=== PATIENT | male | born 1930 | race Caucasian/White ===

== ENCOUNTER → 2016-09-26 | Outpatient (CLI) | payer OTHER, MEDICARE ==
[~2016-09-26] MED LIST: ACET-1138 PO; ASPEC325 PO; BRIM0.2S OPB; CLTP PO; CZR50 PO; GLUCTAB7 PO; LATA0.009 OPB; NUTR1CAP PO; OMEG10007 PO; PSYL1CAP4 PO; RXC5 PO; VSC/5 PO
[2016-09-26 09:31] LABS: BLOOD UREA NITROGEN 25 mg/dl (7-18); GLUCOSE 102 mg/dl (70-99)
[2016-09-26 09:32] LABS: BUN/CREATININE RATIO 24.9 (10-20); CARBON DIOXIDE 26 mmol/L (21-32); CHLORIDE 109 mmol/L (98-107); CHOLESTEROL 166 mg/dl (0-200); POTASSIUM 4.5 mmol/L (3.5-5.1); SODIUM 142 mmol/L (136-145); TRIGLYCERIDES 85 mg/dl (0-150); VERY LOW DENSITY LIPOPROT CALC 17 mg/dl
[2016-09-26 09:36] LABS: CHOLESTEROL/HDL RATIO 4.3; HDL CHOLESTEROL 39 mg/dl; LDL CHOLESTEROL CALCULATED 110 mg/dl
[2016-09-26 09:37] LABS: CALCIUM 9.2 mg/dl (8.5-10.1)
== END | disposition home or self-care (01) ==
LOC: C.LABFOXMH 08:46
PROVIDERS: ATTEND Internal Medicine
DX: I10 Essential (primary) hypertension (principal); E78.00 Pure hypercholesterolemia, unspecified

== ENCOUNTER → 2017-02-14 | Outpatient (CLI) | payer OTHER, MEDICARE ==
[2017-02-14 10:15] LABS: BLOOD UREA NITROGEN 25 mg/dl (7-18); BUN/CREATININE RATIO 23.1 (10-20); CALCIUM 8.6 mg/dl (8.5-10.1); CARBON DIOXIDE 29 mmol/L (21-32); CHLORIDE 111 mmol/L (98-107); GLUCOSE 111 mg/dl (70-99); POTASSIUM 4.5 mmol/L (3.5-5.1); SODIUM 143 mmol/L (136-145)
== END | disposition home or self-care (01) ==
LOC: C.LABFOXMH 09:40
PROVIDERS: ATTEND Internal Medicine
DX: I10 Essential (primary) hypertension (principal)

== ENCOUNTER → 2017-06-13 | Outpatient (CLI) | payer OTHER, MEDICARE ==
[2017-06-13 11:02] LABS: ALBUMIN 3.3 gm/dl (3.4-5.0); ALT/SGPT 21 U/L (12-78); BLOOD UREA NITROGEN 25 mg/dl (7-18); CALCIUM 8.9 mg/dl (8.5-10.1); CARBON DIOXIDE 24 mmol/L (21-32); CHOLESTEROL 137 mg/dl (0-200); CREATININE 1.04 mg/dl (0.60-1.40); GLUCOSE 116 mg/dl (70-99); POTASSIUM 4.3 mmol/L (3.5-5.1); SODIUM 140 mmol/L (136-145)
[2017-06-13 11:05] LABS: ALKALINE PHOSPHATASE 50 U/L (45-117); AST/SGOT 11 U/L (15-37); LDL CHOLESTEROL CALCULATED 81 mg/dl
== END | disposition home or self-care (01) ==
LOC: C.LABFOXMH 09:07
PROVIDERS: ATTEND Internal Medicine
DX: I10 Essential (primary) hypertension (principal)

== ENCOUNTER 2017-07-24 13:06 | Emergency (ER) | payer OTHER, MEDICARE ==
[~2017-07-24] VITALS: Ht 177.8 cm; Wt 100.1 kg
[2017-07-24 13:21] VITALS: TEMP 37; Ht 177.8 cm; Wt 100.1 kg
[2017-07-24 13:28] VITALS: O2SAT 92
[2017-07-24] MEDS ORDERED: LATA0.5S OPB (14:08)
[2017-07-24] MEDS ORDERED: PSYL48.511 PO (14:08)
[2017-07-24] MEDS ORDERED: ASPI81TA28 PO (14:08)
[2017-07-24] MEDS ORDERED: GLUC1CAP35 PO (14:08)
[2017-07-24] MEDS ORDERED: NUTR1CAP PO (14:08)
[2017-07-24] MEDS ORDERED: LOSA1TAB PO (14:08)
--- NOTE | 2017-07-24 14:33 | DIAGNOSTIC IMAGING REPORT ---
CT HEAD WITHOUT CONTRAST (CT) CLINICAL HISTORY: Head trauma. Weakness. Patient on aspirin. COMPARISON STUDY: No previous studies for comparison. TECHNIQUE: Axial CT of the brain is performed from the vertex to the skull base. IV contrast was not administered for this examination. A dose lowering technique was utilized adhering to the principles of ALARA. CT DOSE: 679.75 mGycm FINDINGS: No intra or extra-axial mass lesions are visualized. There is no CT evidence of acute cortical infarction. There is no evidence of midline shift. There is no acute hemorrhage. No calvarial fractures are visualized. There are minor white matter hypodensities likely on a small vessel basis. There is no evidence of pathologic ventricular dilatation. There is moderate generalized atrophy. There is no evidence of acute sinusitis IMPRESSION: No acute intracranial findings Electronically signed by: Tripp Vicente M.D. 07/24/2017 2:32 PM Dictated Date/Time: 07/24/2017 2:31 PM
--- NOTE | 2017-07-24 15:18 | EMERGENCY ROOM VISIT NOTE ---
History Report prepared by Stephanie: Moshe Muhammad Under the Supervision of: Dr. Jace Busch M.D. First contact with patient: 13:55 Chief Complaint: FALL Stated Complaint: FALL History of Present Illness The patient is a 86 year old white male with a past medical history of herpes zoster, HTN, left knee replacement, Lumbosacral Spondylosis and previous prostate cancer who presents to the ED s/p fall occurring three hours ago. Patient is a resident at [facility]. He did not hit his head or lose consciousness. He did not injure himself on the fall. Patient states "my legs just got tangled up". He states that he was using his walker, and fell towards the right. Negative altered mental status, headaches, chest pain, SOB. He is on aspirin, but no other blood thinning medication. Source of History: patient Onset: Three hours ago Quality: other (fall) Timing: other (episode) Associated Symptoms: No LOC, No headache, No neck pain, No chest pain, No SOB, No abdominal pain, No back pain Note: Negative altered mental status. Review of Systems See HPI for pertinent positives and negatives. A total of ten systems were reviewed and were otherwise negative. Past Medical & Surgical Medical Problems: (1) Elevated Prostate Specific Antigen [Psa] (2) Herpes Zoster Nos (3) Hypertension Nos (4) Left Knee DJD (5) Lumbosacral Spondylosis (6) Prostate cancer Family History Cancer Heart disease Social History Smoking Status: Former Smoker Marital Status: Housing Status: lives alone Occupation Status: retired Current/Historical Medications Scheduled Aspirin (Aspirin Ec), 81 MG PO DAILY Brimonidine Tartrate-Timolol M (Combigan), 1 DROP OPB BID Fish Oil ([place]-3), 1 CAP PO BIDM Duaxdsppgte-Subvoqlhbfl-Ncf C- (Glucosamine Chondroitin), 1 CAP PO BID Latanoprost (Xalatan 0.005% Oph Emily), 1 DROPS OP HS Losartan Potassium (Cozaar), 25 MG PO DAILY Nutritional Supplements (Prostate 2.4), 1 CAP PO BID Psyllium (Eq Fiber Therapy), 1 TSP PO BID Solifenacin (Vesicare), 5 MG PO QPM Allergies Coded Allergies: BEE STING (Verified Allergy, Unknown, hives and generalized swelling, 07/24) Sulfa Drugs (Verified Allergy, Unknown, hives, 07/24/17) Physical Exam Vital Signs Date Time Temp Pulse Resp B/P (MAP) Pulse Ox O2 Delivery O2 Flow Rate FiO2 07/24/17 14:38 81 18 110/60 93 Room Air 07/24/17 13:52 86 07/24/17 13:51 86 07/24/17 13:28 92 Room Air 07/24/17 13:21 37.0 89 22 124/73 92 Room Air Physical Exam GENERAL: Awake, alert, well-appearing, NAD. Appears stated age. HENT: Normocephalic, atraumatic. EYES: Normal conjunctiva. Sclera non-icteric. NECK: Supple. No nuchal rigidity. FROM. No midline C-spine tenderness. RESPIRATORY: CTAB, no rhonchi, wheezing, crackles CARDIAC: RRR, no MRG ABDOMEN: Soft, NTND, BS+ MSK: No chest wall TTP, no LE edema. No hip, back, arm or leg pain. NEURO: CN 2-12 intact, 5/5 upper and lower extremity strength, no dysmetria, no drift, good finger to nose, no sensory deficits. SKIN: No rash or jaundice noted. Many nevi noted. Medical Decision & Procedures ER Provider Diagnostic Interpretation: Radiology results as stated below per my review and radiologist interpretation: CT HEAD WITHOUT CONTRAST (CT) FINDINGS: No intra or extra-axial mass lesions are visualized. There is no CT evidence of acute cortical infarction. There is no evidence of midline shift. There is no acute hemorrhage. No calvarial fractures are visualized. There are minor white matter hypodensities likely on a small vessel basis. There is no evidence of pathologic ventricular dilatation. There is moderate generalized atrophy. There is no evidence of acute sinusitis IMPRESSION: No acute intracranial findings Electronically signed by: Tripp Vicente M.D. 07/24/2017 2:32 PM ECG Per My Interpretation Indication: other (fall) Rate (beats per minute): 85 Rhythm: normal sinus Findings: left axis deviation, other (Normal intervals. No STS changes or TWI. ) ED Course 1408: The patient was evaluated in room B11B. A complete history and physical exam was performed. 1445: I reevaluated the patient. Discussed results and discharge instructions: he verbalized understanding and agreement. The patient is ready for discharge. Medical Decision The patient is a 86 year old white male with a past medical history of herpes zoster, HTN, left knee replacement, Lumbosacral Spondylosis and previous prostate cancer who presents to the ED s/p fall occurring three hours ago. Differential diagnosis: Etiologies such as fracture, dislocation, intra-abdominal, pneumothorax, intrathoracic , intracranial, neurologic, as well as other traumatic pathologies were entertained. Patient was seen and evaluated at the bedside. Patient reportedly had a mechanical fall at approximately 11 AM this morning. Patient does take a baby aspirin but no other blood thinning medications. Patient denies any symptomatic complaints whatsoever. He denies any headache, neck pain, chest pain, back pain, shortness of breath, abdominal pain or extremity pain. She does typically annually with a walker. Patient states that he was trying to walk at his feet tangled up and fell to his right. Patient does live at [facility]. Patient has a unremarkable neurologic exam. Patient has no evidence of overt trauma. The patient did have a CT of the brain which is negative acute. Again the patient has no midline C-spine tenderness and the patient has no neurologic deficit I do not believe he requires further imaging or treatment at this time. The patient was trialed with ambulation with a walker. Patient was able to do so without difficulty. The patient was deemed suitable for outpatient follow-up and treatment at this time. Patient was given strict follow-up, discharge, and return precautions. All questions were answered. Patient was deemed suitable for outpatient follow-up at this time. Patient agreed with the plan of care and was safely discharged home. Medication Reconcilliation Current Medication List: was personally reviewed by me Blood Pressure Screening Patient's blood pressure: Normal blood pressure Blood pressure disposition: Did not require urgent referral Impression Primary Impression: Fall Scribe Attestation The scribe's documentation has been prepared under my direction and personally reviewed by me in its entirety. I confirm that the note above accurately reflects all work, treatment, procedures, and medical decision making performed by me. Departure Information Dispostion Home / Self-Care Referrals Lin Muniz (PCP) Patient Instructions ED Mechanical Fall, ED Prevention Fall, My [facility] Additional Instructions Please return to the emergency department if you have worsening or recurrent symptoms not amenable to at-home treatment. Please call for a follow-up appointment with her primary care physician. Please take your medications as prescribed. If you have other concerns and/or complaints please feel free to also call your primary care physician's office or return the ED for further evaluation, management, and treatment. Your head CT was negative. If you do develop any neurologic symptoms which could include difficulty with speaking, numbness, tingling, or weakness please return for further evaluation and treatment. Take your medications as prescribed. You have been examined and treated today on an emergency basis only. This is not a substitute for, or an effort to provide, complete comprehensive medical care. It is impossible to recognize and treat all injuries or illnesses in a single emergency department visit. It is therefore important that you follow up closely with [facility], your PCP, and/or your specialist(s). Call as soon as possible for an appointment. Thank you for your time and consideration. I look forward to speaking with you again soon. Please don't hesitate to call us if you have any questions. Problem Qualifiers Primary Impression: Fall Encounter type: initial encounter Qualified Codes: W19.XXXA - Unspecified fall, initial encounter
[2017-07-24 16:01] VITALS: BP 115/62; PULSE 76; O2SAT 94
[2017-07-25] MEDS ORDERED: CALC-20 PO (00:24)
[2017-07-25] MEDS ORDERED: MISCTAB29 PO (00:24)
[2017-07-25] MEDS ORDERED: MULT-610 PO (00:24)
[2017-07-25] MEDS ORDERED: PSYL48.59 PO (00:24)
[2017-07-25] MEDS ORDERED: CZR50 PO (00:24)
[2017-07-25] MEDS ORDERED: OSEL75CA12 PO (01:35)
== END 2017-07-24 16:02 | disposition home or self-care (01) ==
LOC: EDBD 13:06 → C.EDB 13:07
DX: Z04.3 Encounter for examination and observation following other accident (principal); W19.XXXA Unspecified fall, initial encounter; I10 Essential (primary) hypertension; Z85.46 Personal history of malignant neoplasm of prostate; Z96.652 Presence of left artificial knee joint; M47.897 Other spondylosis, lumbosacral region; Z87.891 Personal history of nicotine dependence

== ENCOUNTER 2017-07-24 19:51 | Emergency (ER) | payer OTHER, MEDICARE ==
[~2017-07-24] VITALS: Ht 177.8 cm; Wt 101.9 kg
[~2017-07-24 19:51] MED LIST changes: +ASPI81TA28 PO; +GLUC1CAP35 PO; +LATA0.5S OPB; +LOSA1TAB PO; +PSYL48.511 PO
[2017-07-24 19:55] VITALS: Ht 177.8 cm; Wt 101.9 kg
[2017-07-24 21:34] VITALS: O2SAT 93
[2017-07-24 22:11] LABS: BASO % 0.4 %; BASO ABS # 0.02 K/uL (0-0.2); HEMATOCRIT 45.2 % (42-52); HEMOGLOBIN 15.9 g/dL (14.0-18.0); IG# 0.01 K/uL (0.00-0.02); LYMPH % 9.4 %; LYMPH ABS # 0.52 K/uL (1.2-3.4); MEAN CELL VOLUME 91.7 fL (80-100); MEAN CORPUSCULAR HEMOGLOBIN 32.3 pg (25-34); MEAN CORPUSCULAR HGB CONC 35.2 g/dl (32-36); MEAN PLATELET VOLUME 10.7 fL (7.4-10.4); MONO % 16.8 %; MONO ABS # 0.93 K/uL (0.11-0.59); NEUT % 73.2 %; NEUT ABS # 4.04 K/uL (1.4-6.5); PLATELET COUNT 114 K/uL (130-400); RED CELL DISTRIBUTION WIDTH CV 13.7 % (11.5-14.5); RED CELL DISTRIBUTION WIDTH SD 45.7 fL (36.4-46.3); WHITE BLOOD COUNT 5.52 K/uL (4.8-10.8)
[2017-07-24 22:17] LABS: INFLUENZA B ANTIGEN Neg for Influ B (NEG)
[2017-07-24] MEDS ORDERED: OSELTAMIVIR PHOSPHATE 75 MG CAP PO STA (22:29)
[2017-07-24 22:51] LABS: ALBUMIN 3.3 gm/dl (3.4-5.0); ALT/SGPT 23 U/L (12-78); AST/SGOT 16 U/L (15-37); BLOOD UREA NITROGEN 23 mg/dl (7-18); CALCIUM 8.4 mg/dl (8.5-10.1); CARBON DIOXIDE 26 mmol/L (21-32); CREATININE 1.27 mg/dl (0.60-1.40); GLUCOSE 94 mg/dl (70-99); LIPASE 520 U/L (73-393); POTASSIUM 3.9 mmol/L (3.5-5.1); SODIUM 137 mmol/L (136-145)
[2017-07-24 23:02] LABS: ALKALINE PHOSPHATASE 53 U/L (45-117); TOTAL PROTEIN 6.4 gm/dl (6.4-8.2)
[2017-07-25] MEDS ORDERED: CZR50 PO (00:24)
[2017-07-25] MEDS ORDERED: CALC-20 PO (00:24)
[2017-07-25] MEDS ORDERED: PSYL48.59 PO (00:24)
[2017-07-25] MEDS ORDERED: MISCTAB29 PO (00:24)
[2017-07-25] MEDS ORDERED: MULT-610 PO (00:24)
[2017-07-25] MEDS ORDERED: ACETAMINOPHEN 500 MG TAB PO STA (01:33)
[2017-07-25] MEDS ORDERED: OSEL75CA12 PO (01:35)
[2017-07-25 02:10] VITALS: BP 121/51; PULSE 71; TEMP 37.3; O2SAT 92
--- NOTE | 2017-07-25 02:51 | EMERGENCY ROOM VISIT NOTE ---
History Report prepared by Stephanie: Leonel Rowe Under the Supervision of: Dr. Mohsen Carey M.D. First contact with patient: 20:53 Chief Complaint: BILATERAL LEG WEAKNESS Stated Complaint: FALL History of Present Illness The patient is an 86 year old male who presents to the Emergency Room with complaints of constant bilateral leg weakness occurring today. The patient states that he was at the emergency department earlier today for a fall. He notes that he was discharged home, and then fell again because his knees gave out. He reports that he has had a left knee replacement. The patient states that he began to develop cold symptoms last night. Per son, the patient had a fever of 103 earlier today. The patient notes that he has a history of shingles. Pt denies LOC, headache, chills, diaphoresis, visual changes, neck pain, chest pain, breathing difficulties, nausea, vomiting, abdominal pain, back pain, melena, hematochezia, urinary symptoms, numbness, lymphadenopathy, rash, or other complaints. Source of History: patient Onset: today Position: leg (bilateral) Quality: other (weakness) Timing: constant Associated Symptoms: + fevers (103) Note: He also complains of a fall and cold symptoms that began last night. Review of Systems See HPI for pertinent positives and negatives. A total of ten systems were reviewed and were otherwise negative. Past Medical & Surgical Medical Problems: (1) Elevated Prostate Specific Antigen [Psa] (2) Herpes Zoster Nos (3) Hypertension Nos (4) Left Knee DJD (5) Lumbosacral Spondylosis (6) Prostate cancer (7) Shingles Surgical Problems: (1) History of left knee replacement Family History Cancer Heart disease Social History Smoking Status: Former Smoker Marital Status: Housing Status: lives alone Occupation Status: retired Current/Historical Medications Scheduled Brimonidine Tartrate-Timolol M (Combigan), 1 DROP OPB BID Calcium Carbonate-Vitamin D (Calcium 600 + D), 1 TAB PO BID Fish Oil ([place]enn[place]-3), 1 CAP PO BIDM Latanoprost (Xalatan 0.005% Oph Emily), 1 DROPS OPB HS Losartan Potassium (Losartan Potassium), 50 MG PO QAM Misc Natural Products (Osteo Bi-Flex Advanced Tr), 1 TAB PO QAM Multiple Vitamins W/ Minerals (Centrum Adults), 1 TAB PO QAM Nutritional Supplements (Prostate 2.4), 1 CAP PO BID Oseltamivir (Tamiflu), 75 MG PO BID Psyllium (Metamucil), 1 PKT PO BID Solifenacin (Vesicare), 5 MG PO QPM Allergies Coded Allergies: BEE STING (Verified Allergy, Severe, hives and generalized swelling, ) Sulfa Drugs (Verified Allergy, Severe, hives, 07/24/17) Physical Exam Vital Signs Date Time Temp Pulse Resp B/P (MAP) Pulse Ox O2 Delivery O2 Flow Rate FiO2 07/25/17 02:10 37.3 71 27 121/51 92 07/25/17 00:48 71 27 121/51 92 Room Air 07/25/17 00:03 96 Room Air 07/24/17 21:39 82 07/24/17 21:36 71 20 115/65 93 Room Air 07/24/17 21:34 93 Room Air 07/24/17 19:55 37.3 92 110/63 94 Room Air Physical Exam GENERAL: Awake, alert, well-appearing, in no distress, hard of hearing. HENT: Normocephalic, atraumatic. Oropharynx unremarkable. EYES: Normal conjunctiva. Sclera non-icteric. NECK: Supple. No nuchal rigidity. FROM. No masses. RESPIRATORY: Clear to auscultation. No wheezes. CARDIAC: Normal rate. Normal rhythm. No murmurs. No rubs. Extremities warm and well perfused. Pulses equal. No JVD. GI: Soft, non-distended. No tenderness to palpation. No rebound or guarding. No masses. RECTAL: Deferred. MUSCULOSKELETAL: Atraumatic. Chest examination reveals no tenderness. The back is symmetrical on inspection without obvious abnormality. There is no CVA tenderness to palpation. No joint edema. LOWER EXTREMITIES: Calves are equal size bilaterally and non-tender. No edema. No discoloration. Strength is symmetrical. NEURO: Normal sensorium. No sensory or motor deficits noted. SKIN: No rash or jaundice noted. Medical Decision & Procedures ER Provider Diagnostic Interpretation: Radiology results as stated below per my review and interpretation: Chest x-ray. Findings: A chest x-ray was performed and revealed no pneumothorax , effusion, infiltrate, pulmonary edema, free air under the diaphragm, or wide mediastinum. No significant change compared to 02/24/2016. Laboratory Results 07/24/17 21:50 Red Blood Count 4.93, Mean Corpuscular Volume 91.7, Mean Corpuscular Hemoglobin 32.3, Mean Corpuscular Hemoglobin Concent 35.2, Mean Platelet Volume 10.7, Neutrophils (%) (Auto) 73.2, Lymphocytes (%) (Auto) 9.4, Monocytes (%) (Auto) 16.8, Eosinophils (%) (Auto) 0.0, Basophils (%) (Auto) 0.4, Neutrophils # (Auto ) 4.04, Lymphocytes # (Auto) 0.52, Monocytes # (Auto) 0.93, Eosinophils # (Auto ) 0.00, Basophils # (Auto) 0.02 07/24/17 21:50 Test 07/24/17 00:00 07/24/17 21:50 07/25/17 00:10 Influenza Type A Antigen POS for Influ A (NEG) Influenza Type B Antigen Neg for Influ B (NEG) White Blood Count 5.52 K/uL (4.8-10.8) Red Blood Count 4.93 M/uL (4.7-6.1) Hemoglobin 15.9 g/dL (14.0-18.0) Hematocrit 45.2 % (42-52) Mean Corpuscular Volume 91.7 fL (80-100) Mean Corpuscular Hemoglobin 32.3 pg (25-34) Mean Corpuscular Hemoglobin Concent 35.2 g/dl (32-36) Platelet Count 114 K/uL (130-400) Mean Platelet Volume 10.7 fL (7.4-10.4) Neutrophils (%) (Auto) 73.2 % Lymphocytes (%) (Auto) 9.4 % Monocytes (%) (Auto) 16.8 % Eosinophils (%) (Auto) 0.0 % Basophils (%) (Auto) 0.4 % Neutrophils # (Auto) 4.04 K/uL (1.4-6.5) Lymphocytes # (Auto) 0.52 K/uL (1.2-3.4) Monocytes # (Auto) 0.93 K/uL (0.11-0.59) Eosinophils # (Auto) 0.00 K/uL (0-0.5) Basophils # (Auto) 0.02 K/uL (0-0.2) RDW Standard Deviation 45.7 fL (36.4-46.3) RDW Coefficient of Variation 13.7 % (11.5-14.5) Immature Granulocyte % (Auto) 0.2 % Immature Granulocyte # (Auto) 0.01 K/uL (0.00-0.02) Anion Gap 6.0 mmol/L (3-11) Est Creatinine Clear Calc Drug Dose 50.9 ml/min Estimated GFR () 59.3 Estimated GFR (Non- 51.2 BUN/Creatinine Ratio 18.0 (10-20) Calcium Level 8.4 mg/dl (8.5-10.1) Magnesium Level 2.0 mg/dl (1.8-2.4) Total Bilirubin 0.5 mg/dl (0.2-1) Direct Bilirubin 0.2 mg/dl (0-0.2) Aspartate Amino Transf (AST/SGOT) 16 U/L (15-37) Alanine Aminotransferase (ALT/SGPT) 23 U/L (12-78) Alkaline Phosphatase 53 U/L (45-117) Troponin I < 0.015 ng/ml (0-0.045) Total Protein 6.4 gm/dl (6.4-8.2) Albumin 3.3 gm/dl (3.4-5.0) Lipase 520 U/L (73-393) Thyroid Stimulating Hormone (TSH) 1.330 uIu/ml (0.300-4.500) Urine Color DK YELLOW Urine Appearance CLEAR (CLEAR) Urine pH 5.0 (4.5-7.5) Urine Specific [place] 1.023 (1.000-1.030) Urine Protein 1+ (NEG) Urine Glucose (UA) NEG (NEG) Urine Ketones 1+ (NEG) Urine Occult Blood NEG (NEG) Urine Nitrite NEG (NEG) Urine Bilirubin NEG (NEG) Urine Urobilinogen NEG (NEG) Urine Leukocyte Esterase NEG (NEG) Urine WBC (Auto) 1-5 /hpf (0-5) Urine RBC (Auto) 0-4 /hpf (0-4) Urine Hyaline Casts (Auto) 1-5 /lpf (0-5) Urine Epithelial Cells (Auto) 5-10 /lpf (0-5) Urine Bacteria (Auto) NEG (NEG) Laboratory results reviewed by me Medications Administered Medications (Trade) Dose Ordered Sig/Celeste Route Start Time Stop Time Status Last Admin Dose Admin Oseltamivir Phosphate (Tamiflu Cap) 75 mg NOW STAT PO 07/24/17 22:29 07/24/17 22:30 DC 07/24/17 23:48 75 MG Acetaminophen (Tylenol Tab) 1,000 mg NOW STAT PO 07/25/17 01:33 07/25/17 01:34 DC 07/25/17 01:39 1,000 MG ECG Per My Interpretation Indication: weakness Rate (beats per minute): 64 Rhythm: sinus with SA Findings: no acute ischemic change, other (LVH, nonspecific ST) ED Course 2058: The patient was evaluated in room C6. A complete history and physical exam was performed. 2100: The patient came to the emergency department earlier today and had a CT of the head and EKG performed. His Head CT was negative and his EKG was normal. 2228: Tamiflu Cap 75mg PO 2319: I reevaluated and updated the patient. 0103: The protective services case worker is looking into the patient's rooming situation. 0133: Acetaminophen 1000mg PO 0125: [facility] has availability for the patient. Case management will discuss this possibility with him. 0138: I reevaluated and updated the patient. He feels well and is comfortable going back to [facility]. Discussed results and discharge instructions: he verbalized understanding and agreement. The patient is ready for discharge. Medical Decision Prior records/ancillary studies reviewed and summarized above. Nursing notes reviewed and agree them. Additional history obtained from family. The patient's history was concerning for weakness. Differential diagnosis: Etiologies such as metabolic, infection, hypo/hyperglycemia, electrolyte abnormalities, cardiac sources, intracerebral event, toxicologic, neurologic, as well as others were entertained. Physical examination: As above. ER treatment provided: IV Lock Oral Tylenol Oral Tamiflu On reassessment the patient felt better. Diagnostics interpretation by me: ECG: No ischemia. The labs revealed an unremarkable CBC and chemical panel. Urinalysis negative. Cardiac markers negative. The patient's influenza test is positive. Imaging studies: Chest x-ray as above. The patient is doing very well although is generally weak from the flu. He is currently residing at [facility]. The facility was contacted. He can be moved to more advanced care while he is dealing with this illness. He is not hypoxic. He feels well otherwise. He feels comfortable with the plan. If he worsens in any way he will be back. By the evaluation outlined above other emergent etiologies such as those listed in the differential, as well as others, were deemed relatively unlikely. The patient was educated about the findings as listed above. All questions were answered and the patient was pleased with the treatment. Return instructions were outlined and the patient was discharged in stable condition. The patient was referred to his primary for follow-up for a recheck of the current condition. Medication Reconcilliation Current Medication List: was personally reviewed by me Blood Pressure Screening Patient's blood pressure: Normal blood pressure Blood pressure disposition: Did not require urgent referral Impression Primary Impression: Influenza Additional Impression: Weakness Scribe Attestation The scribe's documentation has been prepared under my direction and personally reviewed by me in its entirety. I confirm that the note above accurately reflects all work, treatment, procedures, and medical decision making performed by me. Departure Information Dispostion Home / Self-Care Prescriptions Oseltamivir (Tamiflu) 75 Mg Cap 75 MG PO BID, #9 CAP Prov: Mohsen Carey MD 07/25/17 Referrals Lj Ellis M.D. (PCP) Forms HOME CARE DOCUMENTATION FORM, IMPORTANT VISIT INFORMATION Patient Instructions My [facility] Additional Instructions Influenza testing was positive in the Emergency Room. Tylenol and Tamiflu given. The patient should transition to [facility] care during this illness and then his disposition should be per Dr. Ellis. Tamiflu 75 mg twice daily for 5 days. Acetaminophen(Tylenol) may be used for fever or pain. Use 1000mg every six hours as needed. Avoid using more than 4000mg in a 24 hour period. Rest and drink plenty of fluids. Controlling your fever with Tylenol and Ibuprofen as above will make you feel better. Wash your hands after nose blowing, sneezing, or coughing. Most germs are spread through contact, therefore improper hygiene may result in your close contacts and loved ones becoming ill just like you. Return to the ER for severe headache, neck stiffness, chest pain, difficulty breathing, fevers, vomiting, worsening of your condition, or as needed. Follow up with your primary physician in one to 2 days for a recheck of your current condition. Problem Qualifiers
--- NOTE | 2017-07-25 06:42 | DIAGNOSTIC IMAGING REPORT ---
CHEST ONE VIEW PORTABLE HISTORY: 86 years-old Male flu, fever acute fever with flulike symptoms COMPARISON: Chest radiographs 02/24/2016 TECHNIQUE: Portable AP view of the chest FINDINGS: Heart is again mildly enlarged, unchanged. Atherosclerosis of the aorta. Pulmonary vascular congestion with mild bilateral interstitial coarsening. Mild blunting of the costophrenic angles suggests trace effusions. No pneumothorax. Subsegmental left basilar opacities noted. Mild right hemidiaphragmatic elevation. No lobar airspace consolidation identified. Bones of the chest appear grossly intact. There are degenerative changes of the shoulders and spine. IMPRESSION: 1. Cardiomegaly with pulmonary vascular congestion and mild interstitial coarsening suggesting developing pulmonary edema. 2. Subsegmental left basilar opacities favor atelectasis. The above report was generated using voice recognition software. It may contain grammatical, syntax or spelling errors. Electronically signed by: Scar Blankenship M.D. 07/25/2017 6:41 AM Dictated Date/Time: 07/25/2017 6:39 AM
== END 2017-07-25 02:10 | disposition home or self-care (01) ==
LOC: EDBD 19:51 → C.EDC 19:52
DX: J10.1 Influenza due to other identified influenza virus with other respiratory manifestations (principal); M62.81 Muscle weakness (generalized); R50.9 Fever, unspecified; I10 Essential (primary) hypertension; Z79.899 Other long term (current) drug therapy; Z85.46 Personal history of malignant neoplasm of prostate; Z96.652 Presence of left artificial knee joint; Z88.2 Allergy status to sulfonamides

== ENCOUNTER → 2017-10-10 | Outpatient (CLI) | payer OTHER, MEDICARE ==
[~2017-10-10] MED LIST changes: -ACET-1138 PO; -ASPEC325 PO; -ASPI81TA28 PO; +CALC-20 PO; -CLTP PO; -GLUC1CAP35 PO; -GLUCTAB7 PO; -LATA0.009 OPB; -LOSA1TAB PO; +MISCTAB29 PO; +MULT-610 PO; +OSEL75CA12 PO; -PSYL1CAP4 PO; -PSYL48.511 PO; +PSYL48.59 PO; -RXC5 PO
[2017-10-10 10:19] LABS: HEMOGLOBIN A1C 5.9 % (4.5-5.6)
[2017-10-10 10:41] LABS: BLOOD UREA NITROGEN 23 mg/dl (7-18); CREATININE 1.05 mg/dl (0.60-1.40); GLUCOSE 103 mg/dl (70-99); POTASSIUM 4.4 mmol/L (3.5-5.1); SODIUM 141 mmol/L (136-145)
[2017-10-10 10:42] LABS: CALCIUM 8.3 mg/dl (8.5-10.1); CARBON DIOXIDE 27 mmol/L (21-32)
== END ==
LOC: C.LABFOXMH 08:31
PROVIDERS: ATTEND Internal Medicine
DX: I10 Essential (primary) hypertension (principal); R78.89 Finding of other specified substances, not normally found in blood